=== PATIENT | female | born 1995 | race Caucasian/White ===

== ENCOUNTER 2024-11-10 06:41 | Observation (INO) | payer BC, SELFPAY ==
[2024-11-10 07:07] VITALS: BP 120/77; BMI 32.8
[2024-11-10 07:25] LABS: % Basophils 0.3 % (0-2); % Eosinophils 0.3 % (0-6); % Immature Granulocytes 1.7 % (0-0.5); % Lymphocytes 11.6 % (20.5-51.1); % Monocytes 8.6 % (1.7-9.3); % Neutrophils 77.5 % (42.2-75.2); Absolute Immature Granulocytes 0.2 10^3/uL (0-0.05); Absolute Lymphocytes 1.6 10^3/uL (1.2-3.4); Absolute Monocytes 1.2 10^3/uL (0.1-0.6); Absolute Neutrophils 10.7 10^3/uL (1.4-6.5); Hematocrit 31.2 % (37.0-47.0); Hemoglobin 10.1 g/dL (12.0-16.0); Mean Corp Hgb Conc. 32.4 g/dL (33.0-37.0); Mean Corpuscular Hgb 28.3 pg (27.0-31.0); Mean Corpuscular Volume 87.4 fL (81.0-99.0); Mean Platelet Volume 11.4 fL (7.4-10.4); Nucleated Red Blood Cells % 0 %; Platelet Count 243 10^3/uL (130-400); Red Blood Cell Count 3.57 10^6/uL (4.20-5.40); Red Cell Dist. Width 14.6 % (11.5-14.5); White Blood Cell Count 13.7 10^3/uL (4.8-10.8)
== END 2024-11-10 09:10 | disposition home or self-care (01) ==
LOC: LDRP 06:41
PROVIDERS: Student in an Organized Health Care Education/Training Program; ADMITTING PHYSICIAN Obstetrics & Gynecology; ATTENDING PHYSICIAN Obstetrics & Gynecology
DX: O47.1 False labor at or after 37 completed weeks of gestation (principal); Z3A.40 40 weeks gestation of pregnancy
CPT/HCPCS: 36415; 85025; 86850; 86900; 86901; G0378

== ENCOUNTER 2024-11-12 19:14 | Inpatient (IN) | payer BC, SELFPAY ==
[2024-11-12 19:37] VITALS: BP 130/83; BMI 31.8
[2024-11-12 19:58] LABS: % Basophils 0.2 % (0-2); % Eosinophils 0.6 % (0-6); % Immature Granulocytes 1.6 % (0-0.5); % Lymphocytes 18.8 % (20.5-51.1); % Monocytes 8.2 % (1.7-9.3); % Neutrophils 70.6 % (42.2-75.2); Absolute Eosinophils 0.1 10^3/uL (0-0.7); Absolute Immature Granulocytes 0.1 10^3/uL (0-0.05); Absolute Lymphocytes 1.7 10^3/uL (1.2-3.4); Absolute Monocytes 0.7 10^3/uL (0.1-0.6); Absolute Neutrophils 6.2 10^3/uL (1.4-6.5); Hematocrit 29.4 % (37.0-47.0); Hemoglobin 9.8 g/dL (12.0-16.0); Mean Corp Hgb Conc. 33.3 g/dL (33.0-37.0); Mean Corpuscular Hgb 28.3 pg (27.0-31.0); Mean Platelet Volume 10.8 fL (7.4-10.4); Nucleated Red Blood Cells % 0 %; Platelet Count 242 10^3/uL (130-400); Red Blood Cell Count 3.46 10^6/uL (4.20-5.40); Red Cell Dist. Width 14.7 % (11.5-14.5); White Blood Cell Count 8.8 10^3/uL (4.8-10.8)
[2024-11-12] MEDS: LR 1000 IV ×2 (20:15→21:20)
[2024-11-12] MEDS: PITOCIN 30 UNITS/NSS 500 ML IV (21:13)
[2024-11-13] MEDS: SUBLIMAZE 100 MCG EPIDURAL (01:40)
[2024-11-13] MEDS: FENTANYL/BUPIVACAINE 100 EPIDURAL (01:40)
[2024-11-13] MEDS: TYLENOL 650 MG PO ×4 (08:38→22:43)
[2024-11-13] MEDS: MOTRIN 600 MG PO ×3 (08:38→20:46)
[2024-11-13] MEDS: PRENATAL PLUS PO (11:28)
[2024-11-14] MEDS: TYLENOL 650 MG PO ×4 (03:50→20:30)
[2024-11-14] MEDS: MOTRIN 600 MG PO ×4 (03:50→23:45)
[2024-11-14 06:24] LABS: Hematocrit 25.8 % (37.0-47.0); Hemoglobin 8.4 g/dL (12.0-16.0)
[2024-11-14] MEDS: SENOKOT-S 1 TABLET PO (07:49)
[2024-11-14] MEDS: PRENATAL PLUS 1 TABLET PO (07:49)
[2024-11-14] MEDS: FEOSOL 325 MG PO (13:20)
[2024-11-15] MEDS: PRENATAL PLUS 1 TABLET PO (07:37)
[2024-11-15] MEDS: FEOSOL 325 MG PO (07:37)
[2024-11-15] MEDS: TYLENOL 650 MG PO (07:38)
[2024-11-15] MEDS: MOTRIN 600 MG PO (07:38)
[2024-11-15] MEDS: SENOKOT-S 1 TABLET PO (07:38)
[2024-11-15 13:40] LABS: Syphilis/T. pallidum Ab Reflex Negative (Negative)
== END 2024-11-15 11:06 | disposition home or self-care (01) | DRG 807 ==
LOC: LDRP 19:14
PROVIDERS: ADMITTING PHYSICIAN Obstetrics & Gynecology; FAMILY PHYSICIAN Family Medicine
PROC: 0KQM0ZZ Repair Perineum Muscle, Open Approach (ICD-10-PCS; 2024-11-13)
PROC: 10E0XZZ Delivery of Products of Conception, External Approach (ICD-10-PCS; 2024-11-13)
DX: O70.1 Second degree perineal laceration during delivery (principal); Z37.0 Single live birth; O69.81X0 Labor and delivery complicated by cord around neck, without compression, not applicable or unspecified; Z3A.40 40 weeks gestation of pregnancy
CPT/HCPCS: 85014; 85018; 85025; 86780